=== PATIENT | male | born 1960 | race Caucasian/White ===

== ENCOUNTER 2021-01-11 09:13 | Day surgery (SDC) | payer BC ==
[2021-01-10 14:13] VITALS: BMI 32.5
[2021-01-11] MEDS ORDERED: ceFAZolin 2 GM/DEX 5% 100 ML BAG ONE (09:30)
[2021-01-11] MEDS ORDERED: PROPOFOL 60 ML ONE (10:21)
[2021-01-11] MEDS ORDERED: Fentanyl 100 MCG/2 ML VIAL ONE (10:21)
[2021-01-11] MEDS ORDERED: Lidocaine 1% w/Epinephrine 1:100K 20 ML VIAL ONE (10:31)
[2021-01-11] MEDS ORDERED: Bupivacaine 0.25% 10 ML VIAL ONE (10:31)
== END 2021-01-11 12:30 | disposition home or self-care (01) ==
LOC: SDC 09:13
PROVIDERS: ATTEND Surgery
PROC: 02HV33Z Insertion of Infusion Device into Superior Vena Cava, Percutaneous Approach (ICD-10-PCS; principal; 2021-01-11)
PROC: 0JH60WZ Insertion of Totally Implantable Vascular Access Device into Chest Subcutaneous Tissue and Fascia, Open Approach (ICD-10-PCS; principal; 2021-01-11)
DX: C85.90 Non-Hodgkin lymphoma, unspecified, unspecified site (principal); Z79.1 Long term (current) use of non-steroidal anti-inflammatories (NSAID); Z79.899 Other long term (current) drug therapy; Z88.0 Allergy status to penicillin
CPT/HCPCS: 71045; C1788; J1642; J2704; J3010; S0020

== ENCOUNTER 2021-01-20 06:48 | Day surgery (SDC) | payer BC ==
[2021-01-18 14:22] VITALS: BMI 32.5
[~2021-01-20 06:48] MED LIST: FLU VACC QS2021-22(6MOS UP)/PF 60 MCG/0.5 ML SYRINGE IM ONE
[2021-01-20 07:35] VITALS: BP 127/77; TEMP 97.8
[2021-01-20] MEDS ORDERED: Methotrexate Sodium/PF 12 MG in Sodium Chloride 0.9% 9.52 ML IT SCH (08:00)
[2021-01-20 08:38] LABS: CSF RBC Count - Manual 0 /cu.mm (None Seen); CSF Source CSF; CSF WBC/NonHematics Count-Man 2 /cu.mm (0-5); Clarity Clear (Clear); Tube # 4
== END 2021-01-20 09:40 | disposition home or self-care (01) ==
LOC: RAD 06:48
PROVIDERS: ATTEND Internal Medicine Hematology & Oncology
PROC: 00JU3ZZ Inspection of Spinal Canal, Percutaneous Approach (ICD-10-PCS; principal; 2021-01-20)
DX: C83.39 Diffuse large B-cell lymphoma, extranodal and solid organ sites (principal); K21.9 Gastro-esophageal reflux disease without esophagitis; Z79.899 Other long term (current) drug therapy; Z88.0 Allergy status to penicillin
CPT/HCPCS: 62270; 84157; 88112; 88184; 89051; 90471; 90686; G0008; J9250

== ENCOUNTER 2021-01-25 13:56 | Outpatient (CLI) | payer BC | END 2021-01-25 13:57 | disposition home or self-care (01) | LOC: SCSMRI 13:56 | PROVIDERS: ATTEND Internal Medicine Hematology & Oncology | DX: C83.39 Diffuse large B-cell lymphoma, extranodal and solid organ sites (principal); I67.82 Cerebral ischemia | CPT/HCPCS: 70553 ==

== ENCOUNTER 2021-01-27 07:28 | Day surgery (SDC) | payer BC ==
[2021-01-26 11:12] VITALS: BMI 32.5
[2021-01-27] MEDS ORDERED: Methotrexate Sodium/PF 12 MG in Sodium Chloride 0.9% 9.52 ML IT SCH (08:00)
[2021-01-27 08:50] VITALS: TEMP 97.8
[2021-01-27 09:53] VITALS: BP 136/94
[2021-01-27 10:34] LABS: CSF RBC Count - Manual 0 /cu.mm (None Seen); CSF Source CSF; CSF WBC/NonHematics Count-Man 1 /cu.mm (0-5); Clarity Clear (Clear); Tube # 4
== END 2021-01-27 10:10 | disposition home or self-care (01) ==
LOC: RAD 07:28
PROVIDERS: ATTEND Internal Medicine Hematology & Oncology
PROC: 00JU3ZZ Inspection of Spinal Canal, Percutaneous Approach (ICD-10-PCS; principal; 2021-01-27)
DX: C83.39 Diffuse large B-cell lymphoma, extranodal and solid organ sites (principal); K21.9 Gastro-esophageal reflux disease without esophagitis; E07.9 Disorder of thyroid, unspecified; Z88.0 Allergy status to penicillin
CPT/HCPCS: 62270; 84157; 88112; 88184; 89051; J9250

== ENCOUNTER 2021-01-31 07:21 | Day surgery (SDC) | payer BC ==
[2021-01-27 13:58] VITALS: BMI 32.5
[2021-01-31] MEDS ORDERED: Methotrexate Sodium/PF 12 MG in Sodium Chloride 0.9% 9.52 ML IT SCH (08:00)
[2021-01-31 11:11] LABS: CSF Source CSF; Clarity Clear (Clear); Tube # 4
== END 2021-01-31 11:00 | disposition home or self-care (01) ==
LOC: RAD 07:21
PROVIDERS: ATTEND Internal Medicine Hematology & Oncology
PROC: 009U3ZX Drainage of Spinal Canal, Percutaneous Approach, Diagnostic (ICD-10-PCS; principal; 2021-01-31)
DX: C83.39 Diffuse large B-cell lymphoma, extranodal and solid organ sites (principal); E07.9 Disorder of thyroid, unspecified; K21.9 Gastro-esophageal reflux disease without esophagitis; Z79.899 Other long term (current) drug therapy; Z88.0 Allergy status to penicillin
CPT/HCPCS: 62270; 84157; 88112; 88184; 88237; 89051; J9250

== ENCOUNTER → 2021-02-07 | Day surgery (SDC) | payer BC ==
[2021-02-03 15:32] VITALS: BMI 32.5
[~2021-02-07] MED LIST changes: -FLU VACC QS2021-22(6MOS UP)/PF 60 MCG/0.5 ML SYRINGE IM ONE; +Methotrexate Sodium/PF 12 MG in Sodium Chloride 0.9% 9.52 ML IV SCH
[2021-02-07 12:53] VITALS: BP 131/87; TEMP 97.3
[2021-02-07 15:10] LABS: CSF Source CSF
[2021-02-07 15:11] LABS: Clarity Clear (Clear); Tube # 4
== END ==
LOC: RAD 12:12
PROVIDERS: ATTEND Internal Medicine Hematology & Oncology
PROC: 009U3ZX Drainage of Spinal Canal, Percutaneous Approach, Diagnostic (ICD-10-PCS; principal; 2021-02-07)
DX: C83.39 Diffuse large B-cell lymphoma, extranodal and solid organ sites (principal); E07.9 Disorder of thyroid, unspecified; K21.9 Gastro-esophageal reflux disease without esophagitis; Z79.1 Long term (current) use of non-steroidal anti-inflammatories (NSAID); Z79.52 Long term (current) use of systemic steroids; Z79.899 Other long term (current) drug therapy; Z88.0 Allergy status to penicillin
CPT/HCPCS: 36415; 62270; 80053; 82248; 83615; 84100; 84157; 84550; 88112; 88184; 89051; J9250

== ENCOUNTER 2021-02-11 10:23 | Day surgery (SDC) | payer BC ==
[2021-02-10 13:07] VITALS: BMI 32.5
[~2021-02-11 10:23] MED LIST changes: +Methotrexate Sodium/PF 12 MG in Sodium Chloride 0.9% 9.52 ML IT SCH
[2021-02-11 11:00] VITALS: TEMP 97.5
[2021-02-11 13:15] VITALS: BP 122/80
[2021-02-11 13:48] LABS: CSF Source CSF; Clarity Clear (Clear); Tube # 4
[2021-02-11 13:50] LABS: CSF RBC Count - Manual 0 /cu.mm (None Seen); CSF WBC/NonHematics Count-Man 2 /cu.mm (0-5)
== END 2021-02-11 12:50 | disposition home or self-care (01) ==
LOC: RAD 10:23
PROVIDERS: ATTEND Internal Medicine Hematology & Oncology
PROC: 009U3ZX Drainage of Spinal Canal, Percutaneous Approach, Diagnostic (ICD-10-PCS; principal; 2021-02-11)
DX: C83.39 Diffuse large B-cell lymphoma, extranodal and solid organ sites (principal); E07.9 Disorder of thyroid, unspecified; K21.9 Gastro-esophageal reflux disease without esophagitis; Z88.0 Allergy status to penicillin
CPT/HCPCS: 84157; 88112; 88184; 89051; J9250

== ENCOUNTER 2021-02-24 12:32 | Day surgery (SDC) | payer BC ==
[2021-02-23 15:19] VITALS: BMI 32.5
[~2021-02-24 12:32] MED LIST changes: -Methotrexate Sodium/PF 12 MG in Sodium Chloride 0.9% 9.52 ML IV SCH
[2021-02-24 15:28] VITALS: BP 114/81
== END 2021-02-24 15:00 | disposition home or self-care (01) ==
LOC: RAD 12:32
PROVIDERS: ATTEND Internal Medicine Hematology & Oncology
PROC: 009U3ZX Drainage of Spinal Canal, Percutaneous Approach, Diagnostic (ICD-10-PCS; principal; 2021-02-24)
DX: C83.39 Diffuse large B-cell lymphoma, extranodal and solid organ sites (principal); E07.9 Disorder of thyroid, unspecified; K21.9 Gastro-esophageal reflux disease without esophagitis; Z88.0 Allergy status to penicillin
CPT/HCPCS: 36415; 62270; 80053; 82248; 83615; 84100; 84550; 88184; J9250

== ENCOUNTER 2021-03-02 12:14 | Day surgery (SDC) | payer BC ==
[2021-02-28 15:47] VITALS: BMI 31.3
[~2021-03-02 12:14] MED LIST changes: +FLU VACC QS2021-22(6MOS UP)/PF 60 MCG/0.5 ML SYRINGE IM ONE; +Prevnar 13-Val Conj/PF 0.5 ML SYRINGE IM ONE
[2021-03-02 14:40] VITALS: BP 121/75
== END 2021-03-02 14:25 | disposition home or self-care (01) ==
LOC: RAD 12:14
PROVIDERS: ATTEND Internal Medicine Hematology & Oncology
PROC: 009U3ZX Drainage of Spinal Canal, Percutaneous Approach, Diagnostic (ICD-10-PCS; principal; 2021-03-02)
DX: C83.39 Diffuse large B-cell lymphoma, extranodal and solid organ sites (principal); E07.9 Disorder of thyroid, unspecified; K21.9 Gastro-esophageal reflux disease without esophagitis; Z79.1 Long term (current) use of non-steroidal anti-inflammatories (NSAID); Z79.899 Other long term (current) drug therapy; Z88.0 Allergy status to penicillin
CPT/HCPCS: 62270; 88184; J9250

== ENCOUNTER 2021-03-10 12:06 | Day surgery (SDC) | payer BC ==
[2021-03-08 15:32] VITALS: BMI 31.3
[~2021-03-10 12:06] MED LIST changes: -FLU VACC QS2021-22(6MOS UP)/PF 60 MCG/0.5 ML SYRINGE IM ONE; -Methotrexate Sodium/PF 12 MG in Sodium Chloride 0.9% 9.52 ML IT SCH; +Methotrexate Sodium/PF 12 MG in Sodium Chloride 0.9% 9.52 ML IV SCH; -Prevnar 13-Val Conj/PF 0.5 ML SYRINGE IM ONE
[2021-03-10 14:51] VITALS: BP 107/78
[2021-03-10] MEDS ORDERED: FLU VACC QS2021-22(6MOS UP)/PF 60 MCG/0.5 ML SYRINGE IM ONE (15:45)
[2021-03-10] MEDS ORDERED: Prevnar 13-Val Conj/PF 0.5 ML SYRINGE IM ONE (15:45)
== END 2021-03-10 14:10 | disposition home or self-care (01) ==
LOC: RAD 12:06
PROVIDERS: ATTEND Internal Medicine Hematology & Oncology
PROC: 009U3ZX Drainage of Spinal Canal, Percutaneous Approach, Diagnostic (ICD-10-PCS; principal; 2021-03-10)
DX: C83.39 Diffuse large B-cell lymphoma, extranodal and solid organ sites (principal); E07.9 Disorder of thyroid, unspecified; K21.9 Gastro-esophageal reflux disease without esophagitis; Z79.1 Long term (current) use of non-steroidal anti-inflammatories (NSAID); Z79.52 Long term (current) use of systemic steroids; Z79.899 Other long term (current) drug therapy; Z88.0 Allergy status to penicillin
CPT/HCPCS: 62270; 88184; 90471; 90686; 90732; G0008; G0009; J9250

== ENCOUNTER 2021-03-18 11:56 | Day surgery (SDC) | payer BC ==
[2021-03-18 15:53] VITALS: BP 120/74
[2021-03-18] MEDS ORDERED: FLU VACC QS2021-22(6MOS UP)/PF 60 MCG/0.5 ML SYRINGE IM ONE (16:00)
== END 2021-03-18 14:15 | disposition home or self-care (01) ==
LOC: RAD 11:56
PROVIDERS: ATTEND Internal Medicine Hematology & Oncology
PROC: 00JU3ZZ Inspection of Spinal Canal, Percutaneous Approach (ICD-10-PCS; principal; 2021-03-18)
DX: C83.39 Diffuse large B-cell lymphoma, extranodal and solid organ sites (principal); E07.9 Disorder of thyroid, unspecified; K21.9 Gastro-esophageal reflux disease without esophagitis; Z88.0 Allergy status to penicillin
CPT/HCPCS: 62270; 88184; J9250

== ENCOUNTER → 2021-03-24 | Day surgery (SDC) | payer BC ==
[2021-03-23 14:34] VITALS: BMI 32.5
[2021-03-24 12:42] VITALS: BP 123/82; TEMP 98.1
== END ==
LOC: RAD 12:20
PROVIDERS: ATTEND Internal Medicine Hematology & Oncology
PROC: 00JU3ZZ Inspection of Spinal Canal, Percutaneous Approach (ICD-10-PCS; principal; 2021-03-24)
DX: C83.39 Diffuse large B-cell lymphoma, extranodal and solid organ sites (principal); E07.9 Disorder of thyroid, unspecified; K21.9 Gastro-esophageal reflux disease without esophagitis; Z79.899 Other long term (current) drug therapy; Z88.0 Allergy status to penicillin
CPT/HCPCS: 62270; 88184; J9250

== ENCOUNTER → 2021-04-14 | Day surgery (SDC) | payer BC ==
[2021-04-12 15:33] VITALS: BMI 32.5
[~2021-04-14] MED LIST changes: +Methotrexate Sodium/PF 12 MG in Sodium Chloride 0.9% 9.52 ML IT SCH; -Methotrexate Sodium/PF 12 MG in Sodium Chloride 0.9% 9.52 ML IV SCH
[2021-04-14 14:28] LABS: CSF Source CSF; Clarity Clear (Clear); Tube # 4
[2021-04-14 14:35] LABS: CSF RBC Count - Manual 0 /cu.mm (None Seen); CSF WBC/NonHematics Count-Man 1 /cu.mm (0-5)
== END ==
LOC: RAD 11:58
PROVIDERS: ATTEND Internal Medicine Hematology & Oncology
PROC: 009U3ZX Drainage of Spinal Canal, Percutaneous Approach, Diagnostic (ICD-10-PCS; principal; 2021-04-14)
DX: C83.39 Diffuse large B-cell lymphoma, extranodal and solid organ sites (principal); Z88.0 Allergy status to penicillin
CPT/HCPCS: 62270; 84157; 88112; 89051; J9250